=== PATIENT | male | born 1990 | race Caucasian/White ===

== ENCOUNTER 2023-06-23 08:30 | Emergency (ER) | payer BC, SELFPAY ==
[2023-06-23 08:31] VITALS: BP 141/96; PULSE 74; RESP 14; RESP 18; TEMP 36.4; O2SAT 98; BMI 33.6
--- NOTE | 2023-06-23 08:44 | EKG12_ITS ---
Test Reason : ABL PAIN Blood Pressure : / mmHG Vent. Rate : 065 BPM Atrial Rate : 065 BPM P-R Int : 164 ms QRS Dur : 088 ms QT Int : 394 ms P-R-T Axes : 030 019 022 degrees QTc Int : 409 ms Normal sinus rhythm Normal ECG Confirmed by PJ CAGLE MD ([id number]), newspaper copy editor JAUN GARCIA ([id number]) on 06/25/2023 8:34:20 AM Referred By: CITLALLI Confirmed By:PJ CAGLE MD
--- NOTE | 2023-06-23 08:45 | EDS_ITS ---
HPI History of Present Illness Chief Complaint: Abd Pain Informant: patient Onset/Context/Timing Onset: Today Narrative Narrative: Patient present secondary to upper abdominal pain. He states he woke this morning with tightness across his upper abdomen. He had some mild nausea but no vomiting. He has not eaten anything today. He had a loose bowel movement yesterday morning but then normal after that. No fever or chills. States he felt well when he went to bed last evening. [facility] Medical History (Updated 06/23/23 @ 09:[address] Martha Perkins MD) Seasonal allergies Home Medications dicyclomine 20 mg tablet 20 mg PO BID PRN abdominal pain #20 tabs 06/23/23 [Rx Last Taken Unknown] Allergy/AdvReac Type Severity Reaction Status Date / Time Penicillins Allergy Mild Rash Verified 06/23/23 08:32 Social History Smoking Status: Never smoker ROS ROS ED Constitutional Constitutional ED: Denies chills or fever(s) Eyes Eyes: Denies discharge from eye(s) ENT ENT ED: Denies discharge from eye(s), rhinorrhea or sore throat Cardiovascular Cardiovascular: Denies chest pain or palpitations Respiratory/Chest Respiratory/Chest: Denies cough or dyspnea Gastrointestinal Gastrointestinal: Reports abdominal pain and nausea; Denies diarrhea or vomiting Genitourinary Genitourinary ED: Denies dysuria Musculoskeletal Musculoskeletal: Denies back pain or extremity pain Integumentary Denies Abrasions or rash Neurologic Neurologic: Denies headache(s) or weakness Psychiatric Psychiatric: Denies anxiety or depression Allergic/Immunologic Allergic/Immunologic ED: Denies lip swelling or urticaria EXAM Physical Exam Const Vital Signs: 06/23/23 08:31 Temperature 97.6 F L Temperature Source Temporal Pulse Rate 74 Respiratory Rate 14 Blood Pressure 141/96 H Blood Pressure Mean 111 Pulse Ox 98 Oxygen Delivery Method Room Air Positive well nourished and well developed General Appearance ED: well developed HEENT Reports normocephalic and head/scalp atraumatic Eyes PERRL and EOMs intact bilaterally Neck supple Chest Wall inspection of chest normal and palpation of chest normal Resp normal respiratory effort and clear to auscultation bilaterally Cardio regular rate and regular rhythm GI GI Narrative: Minimal tenderness in the epigastrium. No guarding or rebound. Hypoactive but present bowel sounds. Palpation: soft Extremity normal to inspection Neuro oriented x3 and no sensory deficits noted Sensorium / Orientation: alert Motor Exam: strength 5/5 throughout Psych mental status grossly normal Skin no rashes or lesions noted MDM MDM MDM Narrative Medical decision making narrative: Patient placed on quality assurance monitor chassis. IV line established. EKG obtained to evaluate for cardiac arrhythmia/ischemia. Labwork obtained to evaluate for leukocytosis, anemia, and electrolyte derangement. Patient given Protonix and Bentyl. Lab Data Attestation: I reviewed the patient's lab results. Labs: Laboratory Results - last 24 hr 06/23/23 08:56 WBC 7.9 RBC 5.28 Hgb 16.0 Hct 45.7 MCV 86.6 MCH 30.3 MCHC 35.0 RDW Std Deviation 41.5 RDW Coeff of Dayron 13.2 Plt Count 301 MPV 8.9 Immature Gran % (Auto) 0.300 Neut % (Auto) 56.6 Lymph % (Auto) 30.1 Kings % (Auto) 8.2 Eos % (Auto) 4.2 Baso % (Auto) 0.6 Absolute Neuts (auto) 4.5 Absolute Lymphs (auto) 2.38 Nucleated RBC % 0 Sodium 139 Potassium 4.1 Chloride 111 H Carbon Dioxide 25.0 Anion Gap 3 L BUN 12 Creatinine 0.99 Estim Creat Clear Calc 105.14 Est GFR (MDRD) Af Amer 111 Est GFR (MDRD) Non-Af 92 BUN/Creatinine Ratio 12.1 Glucose 97 Calcium 8.9 Total Bilirubin 0.20 Direct Bilirubin 0.08 AST 31 ALT 67 H Alkaline Phosphatase 56 Troponin I High Sens 4 Total Protein 7.5 Albumin 3.6 Globulin 3.9 Lipase 30 EKG Initial EKG: Attestation: I personally reviewed and interpreted this EKG as follows: Interpretation: Sinus Rhythm (Sinus at 65 with no acute ischemia.) Treatment and Re-Evaluation :: CBC is unremarkable with a white count of 7.9 and normal differential. Hemoglobin is 16. Chemistry studies unremarkable. Glucose is 97. LFTs and lipase normal other than ALT slightly bumped at 67. EKG is sinus rhythm with no evidence of acute ischemia. Troponin was normal at 4. On repeat evaluation patient resting more comfortably. We did discuss starting an antacid medicine. He states he has omeprazole at home that he had taken previously. He states he had stopped drinking pop and felt that he did not need it anymore. He does admit to increase soda consumption recently. I will also write him a paper prescription for Bentyl. If he is still having cramping after restarting his omeprazole he can get that filled to help with symptoms as well. He and are comfortable with the plan. Return instructions given. Discharge Plan Triage Chief Complaint: Abd Pain ED Provider: Martha Perkins Dx/Rx/DC Orders Clinical Impression: Abdominal pain, epigastric Instructions: ED Epigastric Pain Uncertain Cause Prescriptions: New dicyclomine 20 mg tablet 20 mg PO BID PRN (Reason: abdominal pain) Qty: 20 0RF Primary Care Provider: Katerina Ortega MD Referrals: Katerina Ortega MD [Other] - 1 Week if not improving Disposition Disposition: Home, Self Care
[2023-06-23] MEDS: Dicyclomine 10 MG Capsule 20 MG PO (08:54)
[2023-06-23] MEDS: 0.9% Normal Saline (1000mL) 1,000 ML 150 ML IV (08:54)
--- NOTE | 2023-06-23 08:54 | ED.RN ---
NO OLD EKG
[2023-06-23 09:17] LABS: Absolute Lymphocyte Count 2.38 X10^3/uL (0.83-4.51); Absolute Neutrophil Count 4.5 X10^3/uL (2.0-7.7); Basophil# 0.05 X10^3/uL; Basophil% 0.6 % (0-1); Eosinophil# 0.33 X10^3/uL; Eosinophils% 4.2 % (0-5); Hematocrit 45.7 % (40-54); Lymphocyte # 2.38 X10^3/ul (0.83-4.51); Lymphocyte % 30.1 % (19-41); Mean Corpuscular Hgb 30.3 pg (27.0-32.0); Mean Corpuscular Volume 86.6 fL (80-94); Mean Platelet Vol. 8.9 fl (6.2-12.0); Monocyte# 0.65 X10^3/uL; Monocyte% 8.2 % (0-10); NRBC Flagged by Analyzer 0 % (0-5); Neutrophil # 4.49 X10^3/uL (2.7-7.7); Neutrophil % 56.6 % (47-70); Platelet Count 301 K/mm3 (150-450); RBC Distribution Width CV 13.2 % (11.6-14.6); RBC Distribution Width SD 41.5 fl (35.1-43.9); Red Blood Count 5.28 M/mm3 (4.6-6.2); White Blood Count 7.9 K/mm3 (4.4-11.0)
[2023-06-23 09:21] LABS: AST(SGOT) 31 U/L (15-37); Alanine Aminotransfer ALT/SGPT 67 U/L (16-61); Albumin, Serum 3.6 g/dL (3.2-5.0); Alkaline Phosphatase 56 U/L (45-117); Anion Gap 3 (5-15); BUN 12 mg/dL (7-18); BUN/Creat Ratio 12.1 RATIO (10-20); Bilirubin, Direct 0.08 mg/dL (0.00-0.30); Calcium,Total 8.9 mg/dL (8.5-10.1); Chloride 111 mmol/L (98-107); Creatinine, Serum 0.99 mg/dL (0.70-1.30); EST Glomerular Filtration Rate 92 mL/min (>60); Est Glom Filt Rate - Afr Amer 111 mL/min (>60); Estimated Creatinine Clearance 105.14 ml/min; Globulin 3.9 g/dL (2.2-4.2); Glucose 97 mg/dL (74-106); Lipase 30 U/L (13-75); Potassium 4.1 mmol/L (3.5-5.1); Protein, Total 7.5 g/dL (6.4-8.2); Sodium Level 139 mmol/L (136-145); Troponin-I HS 4 pg/mL (3.0-78.0)
--- OUTSIDE RECORDS SUMMARY | 2023-06-23 09:24 | XMS RPT_ITS | CCD ---
Author Name Unknown Address [address] [place] [address] Organization [facility] Care Team Providers Care Senior Software Quality Engineer Name Role Phone Katerina Ortega Primary Care Provider [phone] MD Katerina Ortega Attending Provider MD Katerina Ortega Primary Care Provider [phone] IZABELLA Castellanos Attending Provider [phone] IZABELLA Castellanos Other Provider MD Jhon Le Attending Provider [phone] ARTEMIO Cummings Attending Provider [phone] MD Katerina Ortega Primary Care Provider [phone] IZABELLA Castellanos Attending Provider ARTEMIO Cummings Attending Provider WILLIAM Villanueva Attending Provider December, ARTEMIO Gimenez Attending Provider MD Katerina Ortega Primary Care Provider December, ARTEMIO Gimenez Attending Provider MD Katerina Ortega Attending Provider [phone] Maylin, Pernell Attending Unavailable Katerina Ortega Attending Unavailable Katerina Ortega Attending Unavailable Allergies Allergy Classification Reported Allergen(s) Allergy Type Date of Onset Reaction(s) Facility (2 sources) Penicillins Propensity to adverse reactions to drug 0 Rash [place] (3 sources) Penicillins Allergy to substance 3 Rash [facility] (1 source) Penicillins Drug allergy (disorder) 3 [facility] Rep[facility] Medications Current Medications Medication Drug Class(es) Dates Sig (Normalized) Sig (Original) acetaminophen 500 mg oral tablet (1 source) Start: 09-22-2019 take 1 tablet by mouth every six hours as needed for pain acetaminophen (APAP EXTRA STRENGTH) 500 MG tablet Take 1 tablet by mouth every 6 hours as needed for Pain 20 tablet 0 09/22/2019 Active Completed/Discontinued Medications Medication Drug Class(es) Dates Sig (Normalized) Sig (Original) 12 hr cetirizine hydrochloride 5 mg / pseudoephedrine hydrochloride 120 mg extended release oral tablet (3 sources) alpha-Adrenergic Agonist, Histamine-1 Receptor Antagonist Start: 07-17-2022 End: 04-12-2023 take 1 tablet by mouth once, then take 1 tablet by mouth every twelve hours Cetirizine-Pseudoep hedrine (Zyrtec-D) 5-120 mg tablet extended release 12 hr Discontinued 1 TAB ORAL ONCE July 17, 2022 1:00am April 12, 2023 8:23am cyclobenzaprine hydrochloride 10 mg oral tablet (4 sources) Muscle Relaxant Start: 11-17-2021 End: 07-17-2022 take 10 mg by mouth every eight hours Cyclobenzaprine Discontinued 10 MG ORAL Q8H November 17, 2021 12:00am July 17, 2022 9:32am dexamethasone 1 mg/ml / neomycin 3.5 mg/ml / polymyxin b [id number] unt/ml ophthalmic suspension (3 sources) Aminoglycoside Antibacterial, Polymyxin-class Antibacterial, Corticosteroid Start: 01-28-2022 End: 07-02-2022 take 1 drop(s) into the eye(s) every twelve hours Neomycin-Polymyxin B-Dexameth Discontinued 1 DROP EYE-RIGHT Q12H 5 7 January 28, 2022 12:00am July 02, 2022 11:48am doxycycline hyclate 100 mg oral tablet (4 sources) Tetracycline-class Drug Start: 09-08-2021 End: 11-17-2021 take 100 mg by mouth twice daily Doxycycline Monohydrate Discontinued 100 MG ORAL TWICE A DAY 14 7 September 08, 2021 5:33pm November 17, 2021 8:15am Problems Active Problems Problem Classification Problem Date Documented Date Episodic/Chronic Esophageal disorders (6 sources) Gastroesophageal reflux disease; Translations: [Gastro-esophageal reflux disease without esophagitis] 04-12-2023 Chronic Inflammation; infection of eye (except that caused by tuberculosis or sexually transmitteddisease) (1 source) Unspecified conjunctivitis; Translations: [Other conjunctivitis] Episodic Other connective tissue disease (1 source) Myalgia, unspecified site; Translations: [Myalgia and myositis, unspecified] Episodic Other endocrine disorders (4 sources) Hypoglycemia; Translations: [Hypoglycemia, unspecified] Onset: 06-24-2020 03-17-2021 Chronic Other endocrine disorders (3 sources) Hypoglycemia, unspecified; Translations: [Hypoglycemia, unspecified] Onset: 06-24-2020 Chronic Other eye disorders (1 source) Unspecified disorder of eye and adnexa; Translations: [Other ill-defined disorders of eye] Episodic Other lower respiratory disease (1 source) Cough; Translations: [New onset cough] Episodic Other male genital disorders (4 sources) Male erectile dysfunction, unspecified; Translations: [Erectile dysfunction] 04-12-2023 Chronic Other nutritional; endocrine; and metabolic disorders (2 sources) Obesity; Translations: [Obesity, unspecified] 04-12-2023 Chronic Other nutritional; endocrine; and metabolic disorders (2 sources) Obesity, unspecified; Translations: [Obesity, unspecified] 04-12-2023 Chronic Other upper respiratory disease (4 sources) Allergic rhinitis; Translations: [Allergic rhinitis, unspecified] 04-12-2023 Chronic Other upper respiratory disease (5 sources) Allergic rhinitis, unspecified; Translations: [Allergic rhinitis, cause unspecified] Chronic Otitis media and related conditions (1 source) Otitis media, unspecified, unspecified ear; Translations: [Unspecified otitis media] Episodic Past or Other Problems Problem Classification Problem Date Documented Da te Episodic/Chronic Calculus of urinary tract (8 sources) Kidney stone; Translations: [History of calculus of kidney] Onset: 06-24-2019 Episodic Results Test Name Value Interpretation Reference Range Facil ity Vital Signs Date Time Vital Sign Value Performing Clinician Facility 04-12-2023 08:16-0400 Body height 175 cm MD Katerina Ortega Work Phone: [facility] 04-12-2023 08:16-0400 Body mass index (BMI) [Ratio] 32.6 kg/m2 MD Katerina Ortega Work Phone: [facility] 04-12-2023 08:16-0400 Body temperature 98.7 [degF] MD Katerina Ortega Work Phone: [facility] 04-12-2023 08:16-0400 Body weight 100 kg MD Katerina Ortega Work Phone: [facility] 04-12-2023 08:16-0400 Diastolic blood pressure 73 mm[Hg] MD Katerina Ortega Work Phone: [facility] 04-12-2023 08:16-0400 Heart rate 79 /min MD Katerina Ortega Work Phone: [facility] 04-12-2023 08:16-0400 Respiratory rate 17 /min MD Katerina Ortega Work Phone: [facility] 04-12-2023 08:16-0400 SaO2% (BldA) [Mass fraction] 96 % MD Katerina Ortega Work Phone: [facility] 04-12-2023 08:16-0400 Systolic blood pressure 116 mm[Hg] MD Katerina Ortega Work Phone: [facility] 07-17-2022 08:29-0500 Body height 175 cm MD Katerina Ortega Work Phone: [facility] 07-17-2022 08:29-0500 Body mass index (BMI) [Ratio] 32.2 kg/m2 MD Katerina Ortega Work Phone: [facility] 07-17-2022 08:29-0500 Body temperature 98.1 [degF] MD Katerina Ortega Work Phone: [facility] 07-17-2022 08:29-0500 Body weight 98.8 kg MD Katerina Ortega Work Phone: [facility] 07-17-2022 08:29-0500 Diastolic blood pressure 71 mm[Hg] MD Katerina Ortega Work Phone: [facility] 07-17-2022 08:29-0500 Heart rate 68 /min MD Katerina Ortega Work Phone: [facility] 07-17-2022 08:29-0500 Respiratory rate 18 /min MD Katerina Ortega Work Phone: [facility] 07-17-2022 08:29-0500 SaO2% (BldA) [Mass fraction] 96 % MD Katerina Ortega Work Phone: [facility] 07-17-2022 08:29-0500 Systolic blood pressure 127 mm[Hg] MD Katerina Ortega Work Phone: [facility] 01-28-2022 08:09-0400 Body height 175.01 cm MD Katerina Ortega Work Phone: [facility] Work Phone: 01-28-2022 08:09-0400 Body mass index (BMI) [Ratio] 31.1 kg/m2 MD Katerina Ortega Work Phone: [facility] Work Phone: 01-28-2022 08:09-0400 Body temperature 98.4 [degF] MD Katerina Ortega Work Phone: [facility] Work Phone: 01-28-2022 08:09-0400 Body weight 95.2 kg MD Katerina Ortega Work Phone: [facility] Work Phone: 01-28-2022 08:09-0400 Diastolic blood pressure 76 mm[Hg] MD Katerina Ortega Work Phone: [facility] Work Phone: 01-28-2022 08:09-0400 Heart rate 67 /min MD Katerina Ortega Work Phone: [facility] Work Phone: 01-28-2022 08:09-0400 Respiratory rate 18 /min MD Katerina Ortega Work Phone: [facility] Work Phone: 01-28-2022 08:09-0400 SaO2% (BldA) [Mass fraction] 96 % MD Katerina Ortega Work Phone: [facility] Work Phone: 01-28-2022 08:09-0400 Systolic blood pressure 116 mm[Hg] MD Katerina Ortega Work Phone: [facility] Work Phone: 11-17-2021 08:09-0400 Body height 175 cm MD Katerina Ortega Work Phone: [facility] Work Phone: 11-17-2021 08:09-0400 Body mass index (BMI) [Ratio] 31.3 kg/m2 MD Katerina Ortega Work Phone: [facility] Work Phone: 11-17-2021 08:09-0400 Body temperature 98.9 [degF] MD Katerina Ortega Work Phone: [facility] Work Phone: 11-17-2021 08:09-0400 Body weight 95.9 kg MD Katerina Ortega Work Phone: [facility] Work Phone: 11-17-2021 08:09-0400 Diastolic blood pressure 86 mm[Hg] MD Katerina Ortega Work Phone: [facility] Work Phone: 11-17-2021 08:09-0400 Heart rate 92 /min MD Katerina Ortega Work Phone: [facility] Work Phone: 11-17-2021 08:09-0400 Respiratory rate 18 /min MD Katerina Ortega Work Phone: [facility] Work Phone: 11-17-2021 08:09-0400 SaO2% (BldA) [Mass fraction] 98 % MD Katerina Ortega Work Phone: [facility] Work Phone: 11-17-2021 08:09-0400 Systolic blood pressure 123 mm[Hg] MD Katerina Ortega Work Phone: [facility] Work Phone: 09-08-2021 16:09-0400 Body height 175.26 cm MD Katerina Ortega Work Phone: [facility] Work Phone: 09-08-2021 16:09-0400 Body mass index (BMI) [Ratio] 31.9 kg/m2 MD Katerina Ortega Work Phone: [facility] Work Phone: 09-08-2021 16:09-0400 Body temperature 98.5 [degF] MD Katerina Ortega Work Phone: [facility] Work Phone: 09-08-2021 16:09-0400 Body weight 98.2 kg MD Katerina Ortega Work Phone: [facility] Work Phone: 09-08-2021 16:09-0400 Diastolic blood pressure 92 mm[Hg] MD Katerina Ortega Work Phone: [facility] Work Phone: 09-08-2021 16:09-0400 Heart rate 77 /min MD Katerina Ortega Work Phone: [facility] Work Phone: 09-08-2021 16:09-0400 Respiratory rate 16 /min MD Katerina Ortega Work Phone: [facility] Work Phone: 09-08-2021 16:09-0400 SaO2% (BldA) [Mass fraction] 96 % MD Katerina Ortega Work Phone: [facility] Work Phone: 09-08-2021 16:09-0400 Systolic blood pressure 142 mm[Hg] MD Katerina Ortega Work Phone: [facility] Work Phone: 03-17-2021 08:12-0400 Body height 175 cm MD Katerina Ortega Work Phone: [facility] Work Phone: 03-17-2021 08:12-0400 Body mass index (BMI) [Ratio] 32 kg/m2 MD Katerina Ortega Work Phone: [facility] Work Phone: 03-17-2021 08:12-0400 Body temperature 97.9 [degF] MD Katerina Ortega Work Phone: [facility] Work Phone: 03-17-2021 08:12-0400 Body weight 98 kg MD Katerina Ortega Work Phone: [facility] Work Phone: 03-17-2021 08:12-0400 Diastolic blood pressure 85 mm[Hg] MD Katerina Ortega Work Phone: [facility] Work Phone: 03-17-2021 08:12-0400 Heart rate 62 /min MD Katerina Ortega Work Phone: [facility] Work Phone: 03-17-2021 08:12-0400 Respiratory rate 16 /min MD Katerina Ortega Work Phone: [facility] Work Phone: 03-17-2021 08:12-0400 SaO2% (BldA) [Mass fraction] 98 % MD Katerina Ortega Work Phone: [facility] Work Phone: 03-17-2021 08:12-0400 Systolic blood pressure 127 mm[Hg] MD Katerina Ortega Work Phone: [facility] Work Phone: 11-29-2020 14:23-0400 Body height 175 cm MD Katerina Ortega Work Phone: [facility] Work Phone: 11-29-2020 14:23-0400 Body mass index (BMI) [Ratio] 32.3 kg/m2 MD Katerina Ortega Work Phone: [facility] Work Phone: 11-29-2020 14:23-0400 Body temperature 98.4 [degF] MD Katerina Ortega Work Phone: [facility] Work Phone: 11-29-2020 14:23-0400 Body weight 99 kg MD Katerina Ortega Work Phone: [facility] Work Phone: 11-29-2020 14:23-0400 Diastolic blood pressure 86 mm[Hg] MD Katerina Ortega Work Phone: [facility] Work Phone: 11-29-2020 14:23-0400 Heart rate 82 /min MD Katerina Ortega Work Phone: [facility] Work Phone: 11-29-2020 14:23-0400 Respiratory rate 18 /min MD Katerina Ortega Work Phone: [facility] Work Phone: 11-29-2020 14:23-0400 SaO2% (BldA) [Mass fraction] 99 % MD Katerina Ortega Work Phone: [facility] Work Phone: 11-29-2020 14:23-0400 Systolic blood pressure 144 mm[Hg] MD Katerina Ortega Work Phone: [facility] Work Phone: 09-22-2019 08:43-0400 BP Diastolic 86 mm[Hg] [place] 09-22-2019 08:43-0400 BP Systolic 144 mm[Hg] [place] 09-22-2019 08:43-0400 Pulse (Heart Rate) 82 /[place] 09-22-2019 08:43-0400 Pulse Oximetry 96 % [place] 09-22-2019 08:43-0400 Respiratory Rate 16 /min [employer] [place] 09-22-2019 07:50-0400 BMI (Body Mass Index) 30.42 kg/m2 [place] 09-22-2019 07:50-0400 Body Temperature 98.29 [degF] [facility] [employer] [place] 09-22-2019 07:50-0400 Body weight 93.44 kg [place] 09-22-2019 07:50-0400 Height 175.3 cm [place] Encounters Encounter Date Encounter Type Care Provider Facility Start: 04-20-2023 End: 04-21-2023 ambulatory Katerina Ortega Facility:[facility] Start: 04-20-2023 Encounter for genera l adult medical examination without abnormal findings Katerina Ortega [facility] Start: 04-20-2023 End: 04-20-2023 ambulatory MD Katerina Ortega Work Phone: [facility] Work Phone: Start: 04-20-2023 End: 04-20-2023 Patient encounter procedure MD Katerina Ortega Work Phone: [facility] (Acute) Start: 04-12-2023 End: 04-12-2023 ambulatory Katerina Shpastora Facility:[facility] Start: 04-12-2023 End: 04-12-2023 ambulatory MD Katerina Ortega Work Phone: [facility] Work Phone: Start: 04-12-2023 End: 04-12-2023 Patient encounter procedure MD Katerina Ortega Work Phone: [facility] Work Phone: Start: 07-17-2022 End: 07-17-2022 ambulatory [facility] Start: 07-17-2022 End: 07-17-2022 ambulatory MD Katerina Ortega Work Phone: [facility] Work Phone: Start: 07-17-2022 End: 07-17-2022 Patient encounter procedure MD Katerina Ortega Work Phone: [facility] Start: 01-28-2022 End: 01-28-2022 Patient encounter procedure MD Katerina Ortega Work Phone: [facility] Start: 11-17-2021 End: 11-17-2021 Patient encounter procedure MD Katerina Ortega Work Phone: [facility] Start: 09-08-2021 Non-patient / Non-visit MD Ian Ortega Work Phone: [facility] Start: 09-08-2021 End: 09-08-2021 Patient encounter procedure MD Katerina Ortega Work Phone: [facility] (Acute) Start: 09-08-2021 End: 09-08-2021 Patient encounter procedure MD Katerina Ortega Work Phone: [facility] Start: 03-17-2021 End: 03-17-2021 Patient encounter procedure MD Katerina Ortega Work Phone: [facility] (Acute) Start: 03-17-2021 End: 03-17-2021 Patient encounter procedure MD Katerina Ortega Work Phone: [facility] Start: 11-30-2020 End: 11-30-2020 Patient encounter procedure MD Katerina Ortega Work Phone: [facility] (Acute) Start: 11-29-2020 End: 11-29-2020 Patient encounter procedure MD Katerina Ortega Work Phone: [facility] Start: 04-03-2020 Patient encounter procedure MD Katerina Ortega Work Phone: [facility] Start: 09-22-2019 End: 09-22-2019 Emergency department patient visit Jacob Jay Work Phone: [facility] Emergency Department Procedures Date Procedure Procedure Detail Performing Clinician Start: 09-22-2019 Ct abdomen & pelvis w/o contrast material Jacob Jay Work Phone: Start: 09-22-2019 Urinalysis microscopic only Jacob Jay Work Phone: Start: 09-22-2019 Urnls dip stick/tabl et rgnt auto w/o microscopy Jacob Jay Work Phone: Start: 09-22-2019 Blood count complete auto&auto difrntl wbc Jacob Jay Work Phone: Start: 09-22-2019 Comprehensive metabo lic panel Jacob Jay Work Phone: Plan of Treatment Date Care Activity Detail Author Start: 04-20-2023 [facility] Start: 02-22-2019 Influenza vaccination Flu vaccine (# 1) [place], [place] Start: 01-08-2008 DTaP/Tdap/Td vaccine (1 - Tdap) DTaP/Tdap/Td vaccine (1 - Tdap) [place], [place] Start: 01-08-2004 HIV screen HIV screen [place], [place] Start: 1990 Varicella vaccine (1 of 2 - 2-dose childhood series) Varicella vaccine (1 of 2 - 2-dose childhood series) [place], [place] 25-hydroxyvitamin D3 [Mass/volume] in Serum or Plasma [facility] Cobalamin (Vitamin B 12) [Mass/volume] in Serum or Plasma [facility] Hepatitis B virus lopez rface Ab [Units/volume] in Serum [facility] Patient Education [facility] Work Phone: Testosterone [Mass/volume] in Serum or Plasma [facility] Testosterone Free [Mass/volume] in Serum or Plasma [facility] Thyrotropin [Units/volume] in Serum or Plasma [facility] Urate [Mass/volume] in Serum or Plasma [facility] Immunizations Immunization Date Immunization Notes Care Provider [facility] 03-17-2021 hepatitis B vaccine, adult dosage MD Katerina Ortega Work Phone: [facility] 03-17-2021 influenza, injectabl e, quadrivalent, preservative free MD Katerina Ortega Work Phone: [facility] 04-04-2020 influenza, injectabl e, quadrivalent, preservative free MD Katerina Ortega Work Phone: [facility] 04-04-2020 tetanus and diphther ia toxoids, not adsorbed, for adult use MD Katerina Ortega Work Phone: [facility] 04-28-2019 influenza, injectabl e, quadrivalent, preservative free MD Katerina Ortega Work Phone: [facility] 12-28-2008 tetanus toxoid, redu ann diphtheria toxoid, and acellular pertussis vaccine, adsorbed MD Katerina Ortega Work Phone: [facility] 01-27-2007 meningococcal polysaccharide (groups A, C, Y and W-135) diphtheria toxoid conjugate vaccine (MCV4P) MD Katerina Ortega Work Phone: [facility] 02-14-2000 measles, mumps and rubella virus vaccine MD Katerina Ortega Work Phone: [facility] 01-23-1995 varicella virus vaccine MD Sonido Ortega Work Phone: [facility] 02-12-1994 diphtheria, tetanus toxoids and acellular pertussis vaccine MD Katerina Ortega Work Phone: [facility] 02-12-1994 poliovirus vaccine, inactivated MD Katerina Ortega Work Phone: [facility] 05-24-1992 diphtheria, tetanus toxoids and acellular pertussis vaccine MD Katerina Ortega Work Phone: [facility] 05-24-1992 poliovirus vaccine, inactivated MD Katerina Ortega Work Phone: [facility] 04-07-1991 measles, mumps and rubella virus vaccine MD Katerina Ortega Work Phone: [facility] 1989 diphtheria, tetanus toxoids and acellular pertussis vaccine MD Katerina Ortega Work Phone: [facility] 1989 poliovirus vaccine, inactivated MD Katerina Ortega Work Phone: [facility] 1989 diphtheria, tetanus toxoids and acellular pertussis vaccine MD Katerina Ortega Work Phone: [facility] 1989 poliovirus vaccine, inactivated MD Katerina Ortega Work Phone: [facility] 1989 diphtheria, tetanus toxoids and acellular pertussis vaccine MD Katerina Ortega Work Phone: [facility] 1989 poliovirus vaccine, inactivated MD Katerina Ortega Work Phone: [facility] Payers Date Payer Category Payer Self-pay [id number] 2022 Unknown [id number] 2019 Unknown BCBS BCBS - [place] P PO xxxxxxxxxxxx 2019-Present [address] [place] [address] Unknown [id number] Unknown [id number] Unknown [id number] Social History Date Type Detail Facility Start: 09-22-2019 Tobacco smoking stat us SDIS Never smoker [place] Start: 09-22-2019 Alcohol intake Lifetime non-d kevin (finding) [place] Start: 09-22-2019 History SDOH Alcohol Frequency 1 [place] Sex Assigned At Not on file [place] Start: 11-17-2021 End: 04-12-2023 Tobacco smoking status SDIS Never smoker [facility] Start: 1990 Sex Assigned At Male [facility] Evaluation note Note Date & Type Note Facility [facility] Work Phone: Evaluation note Note Date & Type Note Facility [facility] Work Phone: Evaluation note Note Date & Type Note Facility [facility] Work Phone: Progress note Note Date & Type Note Facility [facility] Work Phone: Summary Purpose Family History No Family History Records Found Relationship Condition Age at Onset Recorded Date/T ioana Not Specified Malignant neoplasm of prostate Unknown Hypertension Unknown Dementia Unknown Not Specified Hypertension Unknown Hypercholesterolemia Unknown Diabetes mellitus Unknown Not Specified Hypercholesterolemia Unknown Coronary artery disease Unknown Not Specified Seizures Unknown Not Specified Dementia Unknown Relationship Condition Age at Onset Recorded Date/T ioana Not Specified Malignant neoplasm of prostate Unknown Hypertension Unknown Dementia Unknown Not Specified Hypertension Unknown Hypercholesterolemia Unknown Diabetes mellitus Unknown Not Specified Hypercholesterolemia Unknown Coronary artery disease Unknown Not Specified Seizures Unknown Not Specified Dementia Unknown Relationship Condition Age at Onset Recorded Date/T ioana Not Specified Malignant neoplasm of prostate Unknown Hypertension Unknown Dementia Unknown Not Specified Hypertension Unknown Hypercholesterolemia Unknown Diabetes mellitus Unknown Hyponatremia Unknown Not Specified Hypercholesterolemia Unknown Coronary artery disease Unknown Not Specified Seizures Unknown Not Specified Dementia Unknown Advance Directives No Advanced Directives Records FoundDocuments on File Type Date Recorded Patient Palletizer Operator Expl anation Advance Directives and Living Will Power of Data Support Analyst Advance Directive Response Recorded Date/ Time Advance Directives No November 17 8:16am Advance Directive Response Recorded Date/ Time Advance Directives No July 17, 2022 8:33am Advance Directive Response Recorded Date/ Time Advance Directives No July 17, 2022 9:33am Discharge Instructions * Instructions* Jacob Jay MD - 09/22/2019 Drink 10-12 extra glasses of fluid today Take Flomax once a day till pain-free Take Tylenol or Vicodin (do not take both) Take ibuprofen 600 mg 3 times a day Take Zofran for nausea and vomiting Follow-up with the urologist if not better in 48 to 72 hours * Attachments The following attachments cannot be sent through Care Everywhere. * Kidney Stone (Divehi) documented in this encounter Assessments Diagnosis Kidney stone Calculus of kidney Chief Complaint and Reason for Visit Chief Complaint Dizzy spells LABS Yearly LAB cough Muscle aches Reason for Visit Allergic rhinitis Annual physical exam Hypoglycemia History of kidney stones Chief Complaint cough Muscle aches eye irritation sinus congestion Reason for Visit Cough Otitis media Muscle ache Allergic eye reaction Bacterial conjunctivitis of right eye Chief Complaint sinus congestion PYV Reason for Visit Allergic rhinitis Annual physical exam Erectile dysfunction Hypoglycemia Allergic rhinitis GERD (gastroesophageal reflux disease) History of kidney stones Obesity Chief Complaint sinus congestion PYV Encounter for annual physical exam Allergic rhinit Reason for Visit Allergic rhinitis Annual physical exam Erectile dysfunction Hypoglycemia Allergic rhinitis GERD (gastroesophageal reflux disease) History of kidney stones Obesity Additional Source Comments (unrecognized sect ion and content) No Status Records FoundNo Status Records Found INFORMATION SOURCE (unrecogn ized section and content) DATE CREATED AUTHOR AUTHOR'S ORGANIZ ATION 05/01/2023 [facility] Reason for Visit (unrecogniz ed section and content) Goals (unrecognized section and content) Goals may be documented in a n alternate sectionGoals may be documented in an alternate sectionGoals may be documented in an alternate sectionGoals may be documented in an alternate section Care Teams (unrecognized sec tion and content) Team Status: Inactive Member Role Status Dates Katerina Ortega MD Primary Care Provider Active Pernell Carlisle NP Attending Provider Active Team Status: Inactive Member Role Status Dates Katerina Ortega MD Primary Care Provider, Attending Elizabeth staley Active FOR RECORDS PERTAINING TO PATIENTS WHO ARE OR HAVE BEEN ENROLLED IN A CHEMICAL DEPENDENCY/SUBSTANCEABUSE PROGRAM, SOME INFORMATION MAY BE OMITTED. This clinical summary was aggregated from multiple sources. Caution should be exercised in using it in the provision of clinical care. This summary normalizes information from multiple sources, and as a consequence, information in this document may materially change the coding, format and clinical context of patient data. In addition, data may be omitted in some cases. CLINICAL DECISIONS SHOULD BE BASED ON THE PRIMARY CLINICAL RECORDS. [facility] [employer] provides no warranty or guarantee of the accuracy or completeness of information in this document.
[2023-06-23] MEDS: Pantoprazole Sodium 40 MG in 0.9% Normal Saline (100mL MB+) 100 ML 330 MG IV (09:39)
== END 2023-06-23 10:06 | disposition home or self-care (01) ==
PROVIDERS: Emergency Provider Emergency Medicine; Visit Provider Emergency Medicine
DX: R10.13 Epigastric pain (principal)
CPT/HCPCS: 80048; 80076; 83690; 84484; 85025; 93005; 96365; 99284; J7030; A4216